=== PATIENT | female | born 1945 | race Caucasian/White ===

== ENCOUNTER 2016-05-09 12:46 | Emergency (ER) | payer MEDICARE ==
[2016-05-09] MEDS ORDERED: Mag-Al Plus 1200 MG/1200 MG/120 MG/30 ML UDCUP ONE (13:44)
[2016-05-09] MEDS ORDERED: Lidocaine Viscous Sol 2% 15 ml UD Cup ONE (13:44)
[2016-05-09] MEDS ORDERED: Pantoprazole 40 MG VIAL ONE (13:44)
--- NOTE | 2016-05-09 13:46 | RAD ---
EXAM: ONE VIEW CHEST: COMPARISON: 07/04/13. HISTORY: Epigastric abdominal pain. FINDINGS: Normal cardiac silhouette. The pulmonary vessels and hilum are normal. Costophrenic angles are slade ar. No masses or consolidation. Tenting of the left hemidiaphragm likely due to scar or atelectasi s. No pneumothorax. Cervical fusion hardware is noted. IMPRESSION: Scarring of the left lung base. POS: [facility]
[2016-05-09 14:03] LABS: #Basophils 0.1 thou/uL (0.0-0.2); #Eosinphils 0.2 thou/uL (0.0-0.7); #Lymphocytes 3.3 thou/uL (1.20-3.40); #Monocytes 0.6 thou/uL (0.11-0.59); #Neutrophils 3.6 thou/uL (1.40-6.50); %Basophils 1.8 % (0.0-1.0); %Eosinophils 2.9 % (0.0-10.0); %Lymphocytes 41.8 % (21.0-51.0); Hematocrit 42.5 % (36.0-47.0); Mean Platelet Volume 8.2 fL (7.4-10.4); Red Blood Cell (RBC) Count 4.59 mill/uL (4.20-5.40)
[2016-05-09 14:10] LABS: Troponin I 0.011 ng/mL (< 0.028)
[2016-05-09 14:17] LABS: ALT (SGPT) 13 U/L (0-55); AST (SGOT) 18 U/L (5-34); Alkaline Phosphatase 95 U/L (40-150); Amylase 79 U/L (25-125); Anion Gap 16 mmol/L (10-20); BUN (Urea Nitrogen) 14 mg/dL (9.8-20.1); Bilirubin, Total 0.5 mg/dL (0.2-1.2); CK (CPK) 45 U/L (29-168); Calc. Creatinine Clearance 0 mL/min (70-130); Calcium 9.7 mg/dL (7.8-10.44); Carbon Dioxide 20 mmol/L (23-31); Chloride 107 mmol/L (98-107); Estimated GFR-MDRD 66; Globulin 3.1 g/dL (2.4-3.5); Lipase 16 U/L (8-78); Protein, Total 7.4 g/dL (5.8-8.1)
[2016-05-09] MEDS ORDERED: Sodium Chloride 0.9% 1,000 ML ONE (14:17)
[2016-05-09 14:54] LABS: Bilirubin Negative (Negative); Blood, Urine Negative (Negative); Glucose, Urine (Dipstick) Negative (Negative); Ketone, Urine Trace mg/dL (Negative); Nitrite Negative (Negative); Protein, Urine (Dipstick) Negative (Neg-Trace); Urobilinogen 0.2 mg/dL (0.2-1.0)
--- NOTE | 2016-05-09 15:32 | PICIS ---
[facility] EMERGENCY RECORD TRIAGE (SunMay 09, 2016 12:59 EPIE) TRIAGE NOTES: Pt reports epigastric abdominal pain. States she has had it for one month. Reports being diagnosed with Ulcer. States that she has also been having fainting spells that go along with it. (SunMay 09, 2016 12:59 EPIE) PATIENT: NAME: Melita Eden, AGE: 70, GENDER: female, : Sun1945, TIME OF GREET: SunMay 09, 2016 12:47, PREFERRED LANGUAGE: Kiswahili, ETHNICITY: Not or , ECODE BILLING MAP: [facility], SSN: [id number], Zip Code: [address], KG WEIGHT: 52.16, PHONE: , , , PERSON ID: [id number], PCP: Nathalia MEDRANO LUKE. (SunMay 09, 2016 12:59 EPIE) COMPLAINT: Near Syncope/Abdominal Pain. (SunMay 09, 2016 12:59 EPIE) ADMISSION: URGENCY: 2 Emergent, ADMISSION SOURCE: Home, TRANSPORT: CAR, BED: TRIAGE. (SunMay 09, 2016 12:59 EPIE) TRIAGE SCREENING: Patient denies suicidal ideation, Patient denies presence of domestic violence. (13:01 EPIE) TREATMENTS IN PROGRESS: Treatments given Prehospital: none. (13:01 EPIE) PROVIDERS: TRIAGE NURSE: Cathi Hoskins RN. (SunMay 09, 2016 12:59 EPIE) VITAL SIGNS: BP 141/66, Pulse 82, Resp 18, (Non-Labored), Temp 98.3, (Oral), Pain 8, O2 Sat 100, on Room Air, Time 05/09/2016 12:56. (12:56 EPIE) PREVIOUS VISIT ALLERGIES: ibuprofen, Tylenol. (SunMay 09, 2016 12:59 EPIE) ibuprofen, Tylenol. (13:01 EPIE) KNOWN ALLERGIES Butrans ibuprofen NSAIDS (Non-Steroidal Anti-Inflamma topiramate: Reaction: MOOD SWINGS Tylenol CURRENT MEDICATIONS [place]: TABLET : Strength - 10 mg-325 mg : ORAL Patient Dose: As Needed. (13:02 EPIE) gabapentin: CAPSULE : Strength - 100 mg : ORAL Patient Dose: unk. (13:02 EPIE) metFORMIN: TABLET : Strength - 500 mg : ORAL Patient Dose: 500 mg Oral 2 times a day. (13:02 EPIE) Crestor: TABLET : Strength - 10 mg : ORAL Patient Dose: unk. (13:02 EPIE) Wellbutrin: &a-1R&a+25V*p+0X*f7064N*c202B*c15G*c2P*p-0X&a-25V&a+1R Name: Melita Eden : 1945 F70 MedRec: [id number] AcctNum: [id number] Prepared: SunMay 09, 2016 15:27 by Interface Page 1 of 12 pMD [facility] EMERGENCY RECORD TABLET : Strength - 75 mg : ORAL Patient Dose: unk. (13:02 EPIE) Cymbalta: CAPSULE,DELAYED RELEASE (ENTERIC COATED) : Strength - 20 mg : ORAL Patient Dose: unk. (13:02 EPIE) traZODone: TABLET : Strength - 100 mg : ORAL Patient Dose: unk.at night as needed. (13:02 EPIE) hyoscyamine: TABLET : Strength - 0.15 mg : ORAL Patient Dose: 0.375 2 times a day. (13:04 EPIE) Victoza 2-Geoff: PEN INJECTOR (ML) : Strength - 0.6 mg/0.1 mL (18 mg/3 mL) : [3 mL(s)] : SUBCUTANEOUS Patient Dose: 1.2 mg once a day. (13:15 EPIE) VITAL SIGNS VITAL SIGNS: BP: 141/66, Pulse: 82, Resp: 18 (Non-Labored), Temp: 98.3 (Oral), Pain: 8, O2 sat: 100 on Room Air, Time: 05/09/2016 12:56. (12:56 EPIE) BP: 127/65, Pulse: 88, Resp: 18 (Non-Labored), O2 sat: 100 on Room Air, Time: 05/09/2016 14:00. (14:00 EPIE) BP: 131/68, Pulse: 84, Resp: 18 (Non-Labored), O2 sat: 100 on Room Air, Time: 05/09/2016 13:30. (13:30 EPIE) BP: 138/54, Pulse: 83, Resp: 18 (Non-Labored), Pain: 6, O2 sat: 100 on Room Air, Time: 05/09/2016 14:20. (14:20 EPIE) BP: 116/72, Pulse: 83, Resp: 20 (Non-Labored), Pain: 6, O2 sat: 97 on Room Air, Time: 05/09/2016 14:30. (14:30 EPIE) BP: 129/67, Pulse: 85, Resp: 20 (Non-Labored), Temp: 98.1 (Oral), Pain: 5, O2 sat: 98 on Room Air, Time: 05/09/2016 15:00. (15:00 EPIE) NURSING ASSESSMENT: ABDOMEN (13:05 EPIE) CONSTITUTIONAL: Patient arrives, via hospital wheelchair, Unsteady gait, Assistance to cart, History obtained from patient, Patient appears comfortable, Patient cooperative, Patient alert, Oriented to person, place and time, Skin warm, Skin dry, Skin normal in color, Mucous membranes pink, Mucous membranes moist, Patient is well-groomed, Pt reports epigastric abdominal pain. States she has had it for one month. Reports being diagnosed with Ulcer. States that she has also been having fainting spells that go along with it. PAIN: aching pain, to the epigastric region, Onset of pain 04/08/2016, on a scale 0-10 patient rates pain as 8. ABDOMEN: Abdomen assessment findings include abdomen symmetrical, Abdomen soft, tender, to the epigastric region, Associated with nausea, Associated with vomiting, no associated diarrhea. LMP: Last menstrual period not applicable due to hysterectomy history. &a-1R&a+25V*p+0X*g6724B*c202B*c15G*c2P*p-0X&a-25V&a+1R Name: Melita Eden : 1945 F70 MedRec: [id number] AcctNum: [id number] Prepared: SunMay 09, 2016 15:27 by Interface Page 2 of 12 pMD [facility] EMERGENCY RECORD GENITOURINARY FEMALE: no associated urinary complaints. NURSING ASSESSMENT: CARDIOVASCULAR (13:12 EPIE) CARDIOVASCULAR: Cardiovascular assessment findings include heart rate normal, Heart sounds normal, Associated with, near syncopal event, Associated with weakness. RESPIRATORY/CHEST: Breath sounds clear, Respiratory assessment findings include respiratory effort easy, Respirations regular, Conversing normally, Neck and chest exam findings include trachea midline, Chest expansion equal, Chest movement symmetrical, no signs of distress, no associated cough noted, no associated fever. NURSING PROCEDURE: BEDSIDE RADIOLOGY BEDSIDE RADIOLOGY: Portable chest x-ray performed. (13:31 EPIE) Bedside radiology performed by NH, Portable chest x-ray performed. (13:31 CCRI) NURSING PROCEDURE: STEAK TENDERIZER MACHINE (13:06 EPIE) PATIENT IDENTIFIER: Patient actively involved in identification process, Patient's identity verified by patient stating name, Patient's identity verified by hospital ID bracelet. STEAK TENDERIZER MACHINE: Patient placed on rn cardiac rehab, Patient placed on non-invasive blood pressure monitor, with disposable blood pressure cuff applied, Patient placed on continuous pulse oximetry, Adult/pediatric oxisensor applied. FOLLOW-UP: After procedure, alarms set and on, After procedure, patient tolerating monitoring. NURSING PROCEDURE: DISCHARGE NOTE (15:12 EPIE) DISCHARGE: Patient discharged to home, in a wheelchair, friend driving, accompanied by friend, Summary of Care printed/ provided, Discharge instructions given to patient, Simple or moderate discharge teaching performed, Prescriptions given and instructions on side effects given, Name of prescription(s) given: omeprazole, Above person(s) verbalized understanding of discharge instructions and follow-up care. BELONGINGS: Belongings and valuables with patient upon arrival to the Emergency Department include:, Belongings and valuables with patient at time of discharge include:, Belongings remain with patient, Valuables remain with patient. NURSING PROCEDURE: EKG CHART (12:59 JPAR) PATIENT IDENTIFIER: Patient actively involved in identification process, Patient's identity verified by patient stating name, Patient's identity verified by patient stating date, Patient's identity verified by hospital ID bracelet, Patient's identity verified by family member. EKG: EKG indicated for Epigastric Pain and Vomiting, 12 lead EKG performed on the left chest, done by Bridger WEI, first EKG. FOLLOW-UP: After procedure, EKG for interpretation given to &a-1R&a+25V*p+0X*y3173N*c202B*c15G*c2P*p-0X&a-25V&a+1R Name: Melita Eden : 1945 F70 MedRec: [id number] AcctNum: [id number] Prepared: SunMay 09, 2016 15:27 by Interface Page 3 of 12 pMD [facility] EMERGENCY RECORD [facility]. SAFETY: Side rails up, Cart/Stretcher in lowest position, Family at bedside, Call light within reach, Hospital ID band on. NURSING PROCEDURE: IV PATIENT IDENITIFIER: Patient actively involved in identification process, Patient's identity verified by patient stating name, Patient's identity verified by hospital ID bracelet. (13:42 EPIE) IV SITE 1: IV established, to the right antecubital, using a 20 gauge catheter, in one attempt, IV site prepped with chloroprep, Saline lock established, Flushed with normal saline (mls): 10, Labs drawn at time of placement, labeled in the presence of the patient and sent to lab. (13:42 EPIE) FOLLOW-UP SITE 1: After procedure, no drainage at IV site, After procedure, no swelling at IV site, After procedure, no redness at IV site. (13:42 EPIE) NOTES: Notes: IV DC with catheter intact. Pressure and dressing applied. (15:10 EPIE) NURSING PROCEDURE: NURSE NOTES NURSES NOTES: Notes: Patient resting with friend at bedside. RR even and unlabored. No new complaints at this time. Warm blanket given for comfort. Awaiting lab results. (13:54 EPIE) Notes: Patient resting with friend at bedside. RR even and unlabored. No new complaints at this time. Pt reports that decreased in pain to a 6/10. IV fluids infusing at this time. (14:22 EPIE) NURSING PROCEDURE: ORTHOSTATIC VITAL SIGNS ORTHOSTATIC VITAL SIGNS: Lying:, Blood pressure: 127/65, Pulse: 85, Sitting:, Blood pressure: 119/65, Pulse: 92, Dizziness with position change, Standing:, Blood pressure: 86/59, Pulse: 105, Dizziness with position change. (14:15 EPIE) Lying:, Blood pressure: 129/67, Pulse: 85, Sitting:, Blood pressure: 123/57, Pulse: 91, Dizziness with position change, Standing:, Blood pressure: 105/65, Pulse: 96, Dizziness with position change, Notes: Pt reports less dizziness than the first orthostatic check. (15:02 EPIE) FOLLOW-UP: After procedure, results given to Dr. Yong SALINAS, Notes: Pt educated about orthostatic hypotension and safety measures associated with it. (14:15 EPIE) After procedure, results given to Dr. Yong SALINAS. (15:02 EPIE) NURSING PROCEDURE: URINE COLLECTION (13:32 EPIE) PATIENT IDENTIFIER: Patient actively involved in identification process, Patient's identity verified by patient stating name, Patient's identity verified by hospital ID bracelet. URINE COLLECTION FEMALE: Urine collected by mid-stream clean catch, Output amount (mL) 60, urine yellow in color, and cloudy, Specimen labeled in the presence of the patient and sent to lab. &a-1R&a+25V*p+0X*p6777C*c202B*c15G*c2P*p-0X&a-25V&a+1R Name: Melita Eden : 1945 F70 MedRec: [id number] AcctNum: [id number] Prepared: SunMay 09, 2016 15:27 by Interface Page 4 of 12 [facility] EMERGENCY RECORD ORDER DETAILS Order Name: Amylase, Status: Active, Time: 13:16 05/09/2016, User: GRISEL, - Ordered for: MD Beach Joshua, - Entered by: MD Beach Joshua - Isa May 09, 2016 13:16, - Quantity: 1, Order Name: STEAK TENDERIZER MACHINE ED, Status: Done, Time: 13:16 05/09/2016, User: SARANYA, - Ordered for: MD Beach Joshua, - Entered by: MD Beach Joshua - Isa May 09, 2016 13:16, - Quantity: 1, Order Name: Cardiac Profile w/CKMB & Troponin - I, Status: Active, Time: 13:16 05/09/2016, User: GRISEL, - Ordered for: MD Beach Joshua, - Entered by: MD Beach Joshua - Tue May 09, 2016 13:16, - Quantity: 1, Order Name: CBC with Differential, Status: Active, Time: 13:16 05/09/2016, User: GRISEL, - Ordered for: MD Beach Joshua, - Entered by: MD Beach Joshua - Tue May 09, 2016 13:16, - Quantity: 1, Order Name: CK (CPK), Status: Active, Time: 13:16 05/09/2016, User: GRISEL, - Ordered for: MD Beach Joshua, - Entered by: MD Beach Joshua - Tue May 09, 2016 13:16, - Quantity: 1, Order Name: Comprehensive Metabolic Panel, Status: Active, Time: 13:16 05/09/2016, User: GRISEL, - Ordered for: MD Beach Joshua, - Entered by: MD Beach Joshua - Tue May 09, 2016 13:16, - Quantity: 1, Order Name: EKG 12 Lead in Emergency Room, Status: Active, Time: 13:06 05/09/2016, User: SARANYA, - Ordered for: MD Beach Joshua, - Entered by: ELIJAH Hoskins Emily - jr May 09, 2016 13:06, - Quantity: 1, Order Name: Lipase, Status: Active, Time: 13:16 05/09/2016, User: GRISEL, - Ordered for: MD Beach Joshua, - Entered by: MD Beach Joshua - Tue May 09, 2016 13:16, - Quantity: 1, Order Name: ORTHOSTATIC VITAL SIGNS, Status: Done, Time: 14:15 05/09/2016, User: EPIJr, - Ordered for: MD Beach Joshua, - Entered by: MD Beach Joshua - Tue May 09, 2016 14:06, - Quantity: 1, Order Name: SALINE LOCK, Status: Done, Time: 13:42 05/09/2016, User: EPIE, &a-1R&a+25V*p+0X*t9715S*c202B*c15G*c2P*p-0X&a-25V&a+1R Name: Melita Eden : 1945 F70 MedRec: [id number] AcctNum: [id number] Prepared: SunMay 09, 2016 15:27 by Interface Page 5 of 12 [facility] EMERGENCY RECORD - Ordered for: MD Beach Joshua, - Entered by: MD Beach Joshua - Tue May 09, 2016 13:16, - Quantity: 1, Order Name: Urinalysis w/ Rflx Microscopic, Status: Active, Time: 13:16 05/09/2016, User: GRISEL, - Ordered for: MD Beach Joshua, - Entered by: MD Beach Joshua - Tue May 09, 2016 13:16, - Quantity: 1, Order Name: XR Chest 1 View Portable, Status: Active, Time: 13:16 05/09/2016, User: GRISEL, - Ordered for: MD Beach Joshua, - Entered by: MD Beach Joshua - jr May 09, 2016 13:16, - Quantity: 1. MEDICATION ADMINISTRATION SUMMARY Drug Name: *sodium chloride 0.9 % intravenous, Dose Ordered: 1 L, Route: IV Fluid Infusion, Status: Given, Time: 14:21 05/09/2016, Drug Name: Protonix intravenous, Dose Ordered: 40 mg, Route: IV Push, Status: Given, Time: 13:50 05/09/2016, Drug Name: GI COCKTAIL - WHITE, Dose Ordered: 40 mL, Route: Oral, Status: Given, Time: 13:49 05/09/2016, *Additional information available in notes, Detailed record available in Medication Service section. MEDICATION SERVICE GI COCKTAIL - WHITE: Order: GI COCKTAIL - WHITE - Dose: 40 mL : Oral Lidocaine Viscous (lidocaine HCl) [10 mL] MAG-AL (magnesium hydroxide/aluminum hydroxide) [30 mL] Ordered by: Car Beach MD Entered by: Car Beach MD SunMay 09, 2016 13:17 , Acknowledged by: Cathi Hoskins RN SunMay 09, 2016 13:32 Documented as given by: Catih Hoskins RN SunMay 09, 2016 13:49 Patient, Medication, Dose, Route and Time verified prior to administration. Amount given: 40ml, Site: Medication administered P.O., Correct patient, time, route, dose and medication confirmed prior to administration, Patient advised of actions and side-effects prior to administration, Allergies confirmed and medications reviewed prior to administration. Protonix intravenous: Order: Protonix intravenous (pantoprazole sodium) - Dose: 40 mg : IV Push Ordered by: Car Beach MD Entered by: Car Beach MD SunMay 09, 2016 13:17 , Acknowledged by: Cathi Hoskins RN SunMay 09, 2016 13:32 Documented as given by: Cathi Hoskins RN SunMay 09, 2016 13:50 Patient, Medication, Dose, Route and Time verified prior to administration. Amount given: 40mg, IV SITE #1 IVP, initial medication, Slowly, &a-1R&a+25V*p+0X*q4932S*c202B*c15G*c2P*p-0X&a-25V&a+1R Name: Melita Eden : 1945 F70 MedRec: [id number] AcctNum: [id number] Prepared: SunMay 09, 2016 15:27 by Interface Page 6 of 12 pMD [facility] EMERGENCY RECORD Catheter placement confirmed via flush prior to administration, IV site without signs or symptoms of infiltration during medication administration, No swelling during administration, No drainage during administration, IV flushed after administration, Correct patient, time, route, dose and medication confirmed prior to administration, Patient advised of actions and side-effects prior to administration, Allergies confirmed and medications reviewed prior to administration. sodium chloride 0.9 % intravenous: Order: sodium chloride 0.9 % intravenous (0.9 % sodium chloride) - Dose: 1 L : IV Fluid Infusion Notes: (Bolus) Ordered by: Car Beach MD Entered by: Car Beach MD SunMay 09, 2016 14:15 , Acknowledged by: Cathi Hoskins RN SunMay 09, 2016 14:17 Documented as given by: Cathi Hoskins RN SunMay 09, 2016 14:21 Patient, Medication, Dose, Route and Time verified prior to administration. Amount given: 1L, IV SITE #1 IV fluids established for hydration, IV SITE #1 into right antecubital, IV SITE #1 1st bag hung, amount 1 Liter hung, IV SITE #1 bolus of 1000 ml established, via primary tubing, Catheter placement confirmed via flush prior to administration, IV site without signs or symptoms of infiltration during medication administration, No swelling during administration, No drainage during administration, IV flushed after administration, Correct patient, time, route, dose and medication confirmed prior to administration, Patient advised of actions and side-effects prior to administration, Allergies confirmed and medications reviewed prior to administration. : Follow Up : Response assessment performed, No signs or symptoms of allergic reaction noted, _IV SITE #1:_, IV fluid infusion discontinued, on SunMay 09, 2016 14:56, 35 minutes, ., Total amount infused: 1L, IV Line flushed after administration. (14:56 EPIE) HPI ABDOMINAL PAIN (13:22 JLOY) CHIEF COMPLAINTS: Patient presents for evaluation of abdominal pain, Patient presents for evaluation of Pt reports epigastric abd pain constant x1 month. Similar to previous ulcer sha had 10 years ago. Pain with eating spicy foods or drinking carbinated drinks. Associated with poor appetite and vomiting every othe day. Pt also with dizziness over the same time frame. Reports 'feels like im going to pass out' with standing. She did pass out once a couple weeks ago. No injury. Near syncope a couple days ago but someone helped her and she didn't fall. Pt saw PCP a couple weeks ago and was prescribed hyoscyamine. She also has tried taking a single pepcid at night. HISTORIAN: History provided by patient. LOCATION FEMALE: Symptoms are localized, most severe in the epigastrium. QUALITY: Pain is dull in nature. TIME COURSE: Patient unable to describe onset of symptoms, &a-1R&a+25V*p+0X*x7954X*c202B*c15G*c2P*p-0X&a-25V&a+1R Name: Melita Eden : 1945 F70 MedRec: [id number] AcctNum: [id number] Prepared: SunMay 09, 2016 15:27 by Interface Page 7 of 12 pMD [facility] EMERGENCY RECORD Symptoms are constant, There has been no change in the patient's symptoms over time. ASSOCIATED WITH FEMALE: No associated bright red blood per rectum, No associated chills, No associated constipation, No associated diarrhea, No associated fever, No associated flank pain, No associated hematemesis, No associated hematuria, Associated with loss of appetite, Associated with nausea, No associated inability to tolerate oral intake, No associated urinary tract infection signs or symptoms, Associated with vomiting. RELIEVED BY: Patient's condition relieved by nothing. EXACERBATED BY: Patient's condition exacerbated by food. ROS (13:25 JLOY) CONSTITUTIONAL: Historian denies chills, denies fever. ENT: Historian denies rhinorrhea, denies sore throat. CARDIOVASCULAR: pt with 5 min episodes of substernal chest pain every few days that resolve by themselves. RESPIRATORY: Historian denies cough, denies shortness of breath, denies sputum. GI: Historian reports abdominal pain, reports anorexia, denies constipation, denies diarrhea, denies hematemesis, denies hematochezia, denies melena, reports nausea, reports vomiting. GENITOURINARY FEMALE: Historian denies dysuria, denies frequency, denies hematuria. MUSCULOSKELETAL: Historian denies arthralgias, denies myalgias. Chronic back pain unchanged. SKIN: Historian denies rash, denies skin changes. NEUROLOGIC: Historian reports dizziness, denies headache, denies paralysis, denies paresthesias, denies sensory changes. Pt reports recurrent severe GOMEZ for many weeks for which she is seeing Dr. Quiñones. PAST MEDICAL HISTORY MEDICAL HISTORY: Past medical history includes history of diabetes, Type II, Past medical history includes neurological disease, peripheral neuropathy. Stomach Ulcers, Chronic Back Pain. (13:01 EPIE) FEMALE SURGICAL HISTORY: back surgery, cataract sx both eyes, Surgical history of appendectomy, Surgical history of cholecystectomy, Surgical history of hysterectomy, Surgical history of tonsillectomy. (13:01 EPIE) PSYCHIATRIC HISTORY: Psychiatric history includes, anxiety, depression. (13:01 EPIE) SOCIAL HISTORY: Patient denies alcohol use, Patient denies drug use, Patient has no smoking history. (13:01 EPIE) NOTES: Nursing records reviewed, Agree with nursing records. (13:28 JLOY) &a-1R&a+25V*p+0X*j2045C*c202B*c15G*c2P*p-0X&a-25V&a+1R Name: Melita Eden : 1945 F70 MedRec: [id number] AcctNum: [id number] Prepared: SunMay 09, 2016 15:27 by Interface Page 8 of 12 pMD [facility] EMERGENCY RECORD PHYSICAL EXAM (13:27 JL) CONSTITUTIONAL: Vital Signs Reviewed, Patient appears non toxic, Patient alert and oriented to person, place and time. EYES: Eye exam included findings of eyelids normal to inspection, Pupils equally round and reactive to light, Conjunctiva normal. ENT: Pharynx exam normal, Uvula exam normal, Tonsil exam normal, Mouth exam normal, mucous membranes moist. NECK: Neck exam included findings of normal range of motion, Trachea midline, no cervical adenopathy. RESPIRATORY CHEST: Respiratory exam included findings of no respiratory distress, Breath sounds clear, No wheezing, No rales, No rhonchi, Chest exam included findings of chest movement symmetrical. CARDIOVASCULAR: Cardiovascular exam included findings of heart rate regular rate and rhythm, Heart sounds normal. ABDOMEN FEMALE: Abdominal exam included findings of abdomen tender, to the epigastric region, moderate intensity, mild tenderness throughout, Liver normal, Spleen normal, no distension, no peritoneal signs, no rigidity, no guarding, no rebound. BACK: Back exam included findings of normal inspection. UPPER EXTREMITY: Upper extremity exam included findings of inspection normal, Radial pulse normal, no cyanosis, no clubbing, no edema. LOWER EXTREMITY: Lower extremity exam included findings of inspection normal, no edema, no calf tenderness. NEURO: [place] coma scale 15, Neuro exam findings include patient oriented to person, place and time, Speech normal. SKIN: Skin exam included findings of skin warm, dry, and normal in color, no rash. PSYCHIATRIC: Normal affect. EVENTS TRANSFER: Triage to Emergency Triage. (SunMay 09, 2016 12:59 EPIE) Emergency Triage to Emergency Room -04. (13:00 EPIE) Removed from Emergency Emergency Room -04. (15:23 EPIE) DOCTOR NOTES (14:51 JLOY) RE-EVALUATION: The patient's condition has improved, Pain nearly resolved. PROBLEM LIST No recorded problems DIAGNOSIS (15:03 JLOY) FINAL: PRIMARY: Abdominal Pain, ADDITIONAL: ORTHOSTATIC HYPOTENSION. DISPOSITION PATIENT: Disposition Type: Discharge, Disposition: *Discharge &a-1R&a+25V*p+0X*t5375C*c202B*c15G*c2P*p-0X&a-25V&a+1R Name: Melita Eden : 1945 F70 MedRec: [id number] AcctNum: [id number] Prepared: SunMay 09, 2016 15:27 by Interface Page 9 of 12 pMD [facility] EMERGENCY RECORD Home. (15:03 JLOY) Patient left the department. (15:23 EPIE) INSTRUCTION (15:04 JLOY) DISCHARGE: GASTRITIS VS. ULCER, DEHYDRATION (7Y-ADULT). FOLLOWUP: Nathalia MEDRANO, DAVID, Internal Medicine, [facility] [id number], , Follow up with Primary Care Physician in 7-10 days. PRESCRIPTION (15:03 JLOY) omeprazole: CAPSULE,DELAYED RELEASE (ENTERIC COATED) : 40 mg : ORAL : Quantity: 40 Unit: mg Route: ORAL Schedule: once a day Dispense: 14 days May substitute. Refills: No Refills . NOTES: No Refills. IMAGING *EKG: Image captured from scanner. (14:09 EPIE) *DISCHARGE INSTRUCTIONS RECEIPT: Image captured from scanner. (15:22 EPIE) *SUPPLY CHARGE SHEET: Image captured from scanner. (15:23 EPIE) RESULTS (15:10 JPAR) RADIOLOGY: XR Chest 1 View Portable Observe DT: SunMay 09, 2016 13:19, CXRP EXAM: ONE VIEW CHEST: COMPARISON: 07/04/13. HISTORY: Epigastric abdominal pain. FINDINGS: Normal cardiac silhouette. The pulmonary vessels and hilum are normal. Costophrenic angles are slade ar. No masses or consolidation. Tenting of the left hemidiaphragm likely due to scar or atelectasi s. No pneumothorax. Cervical fusion hardware is noted. IMPRESSION: Scarring of the left lung base. POS: [facility] . LABORATORY: Urinalysis w/ Rflx Microscopic Collection DT: SunMay 09, 2016 13:38, Color Yellow , Range (Yellow), &a-1R&a+25V*p+0X*f0184C*c202B*c15G*c2P*p-0X&a-25V&a+1R Name: Melita Eden : 1945 F70 MedRec: [id number] AcctNum: [id number] Prepared: SunMay 09, 2016 15:27 by Interface Page 10 of 12 pMD [facility] EMERGENCY RECORD Clarity Clear , Range (Clear), Specific [place], Urine 1.020 , Range (1.005-1.030), pH, Urine 7.5 , Range (5.0-9.0), Leukocyte Negative , Range (Negative), Nitrite Negative , Range (Negative), Protein, Urine (Dipstick) Negative mg/dL, Range (Neg-Trace), Glucose, Urine (Dipstick) Negative mg/dL, Range (Negative), *Ketone, Urine Trace - H mg/dL, Range (Negative), Urobilinogen 0.2 mg/dL, Range (0.2-1.0), Bilirubin Negative , Range (Negative), Blood, Urine Negative , Range (Negative). Lipase Collection DT: SunMay 09, 2016 13:43, Lipase 16 U/L, Range (8-78). Amylase Collection DT: SunMay 09, 2016 13:43, Amylase 79 U/L, Range (25-125). CK (CPK) Collection DT: SunMay 09, 2016 13:43, CK (CPK) 45 U/L, Range (29-168). Comprehensive Metabolic Panel Collection DT: SunMay 09, 2016 13:43, Sodium 139 mmol/L, Range (136-145), Potassium 4.2 mmol/L, Range (3.5-5.1), Chloride 107 mmol/L, Range (98-107), *Carbon Dioxide 20 - L mmol/L, Range (23-31), Anion Gap 16 mmol/L, Range (10-20), BUN (Urea Nitrogen) 14 mg/dL, Range (9.8-20.1), Creatinine 0.85 mg/dL, Range (0.6-1.1), Estimated GFR-MDRD 66 , Reference Range for Estimated GFR: Greater than 90, mL/min/1.73 m2 NOTE: The MDRD equation has not been validated for use, with the elderly (over 70 years of age), women, patients with, serious comorbid condition or persons with extremes of body size, muscle, mass, or nutritional status. , Glucose 107 mg/dL, Range (80-115), Calcium 9.7 mg/dL, Range (7.8-10.44), Bilirubin, Total 0.5 mg/dL, Range (0.2-1.2), Protein, Total 7.4 g/dL, Range (5.8-8.1), NOTE: Plasma values are generally 0.3 to 0.5 g/dL higher than serum values, due to the presence of fibrinogen. , Albumin 4.3 g/dL, Range (3.4-4.8), Globulin 3.1 g/dL, Range (2.4-3.5), Alb/Glob Ratio 1.4 g/dL, Range (1.2-2.2), Alkaline Phosphatase 95 U/L, Range (40-150), AST (SGOT) 18 U/L, Range (5-34), ALT (SGPT) 13 U/L, Range (0-55). Cardiac Profile w/CKMB & TropI Collection DT: SunMay 09, 2016 13:43, CKMB 1.0 ng/mL, Range (0-6.6), Troponin I 0.011 ng/mL, Range (< 0.028), Reference Range &a-1R&a+25V*p+0X*[id number]*c202B*c15G*c2P*p-0X&a-25V&a+1R Name: Melita Eden : 1945 F70 MedRec: [id number] AcctNum: [id number] Prepared: SunMay 09, 2016 15:27 by Interface Page 11 of 12 pMD [facility] EMERGENCY RECORD , 0.00 - 0.028 ng/mL Negative 0.029 - 0.29 ng/mL , Indeterminate Greater or Equal to 0.3 ng/mL Strongly suggests NE , . CBC with Differential Collection DT: SunMay 09, 2016 13:43, White Blood Cell (WBC) Count 8.0 thou/uL, Range (4.8-10.8), Red Blood Cell (RBC) Count 4.59 mill/uL, Range (4.20-5.40), Hemoglobin 13.8 g/dL, Range (12.0-16.0), Hematocrit 42.5 %, Range (36.0-47.0), Mean Corpuscular Volume 92.7 fl, Range (81.0-99.0), Mean Corpuscular Hemoglobin 30.1 pg, Range (27.0-31.0), Mean Corpuscular HGB CONC 32.5 g/dL, Range (32.0-36.0), RBC Distribution Width 11.7 %, Range (11.5-14.5), Platelet Count 308 thou/uL, Range (130-400), Mean Platelet Volume 8.2 fL, Range (7.4-10.4), %Neutrophils 45.4 %, Range (42.0-75.0), %Lymphocytes 41.8 %, Range (21.0-51.0), %Monocytes 8.0 %, Range (0.0-10.0), %Eosinophils 2.9 %, Range (0.0-10.0), *%Basophils 1.8 - H %, Range (0.0-1.0), #Neutrophils 3.6 thou/uL, Range (1.40-6.50), #Lymphocytes 3.3 thou/uL, Range (1.20-3.40), *#Monocytes 0.6 - H thou/uL, Range (0.11-0.59), #Eosinphils 0.2 thou/uL, Range (0.0-0.7), #Basophils 0.1 thou/uL, Range (0.0-0.2). Ackerman: ROBBYI=JULIANA Agrawal, Guero BEAVER=ELIJAH Hoskins, Cathi RECINOS=MD Yong, Car BABB=ELIJAH Velasquez, Bridger &a-1R&a+25V*p+0X*[id number]*c202B*c15G*c2P*p-0X&a-25V&a+1R Name: Melita Eden : 1945 F70 MedRec: [id number] AcctNum: [id number] Prepared: SunMay 09, 2016 15:27 by Interface Page 12 of 12 pMD [facility] MEDICATION RECONCILIATION You were seen in the Emergency Department on: SunMay 09, 2016 KNOWN ALLERGIES Butrans ibuprofen NSAIDS (Non-Steroidal Anti-Inflamma topiramate: Reaction: MOOD SWINGS Tylenol MEDICATIONS GIVEN WHILE IN THE EMERGENCY DEPARTMENT Protonix intravenous (pantoprazole sodium) - Dose: 40 milligram(s) : IV Push GI COCKTAIL - WHITE - Dose: 40 milliliter(s) : Oral sodium chloride 0.9 % intravenous (0.9 % sodium chloride) - Dose: 1 liter(s) : IV Fluid Infusion HOME MEDICATIONS CONTINUE PRESCRIBED Crestor : TABLET : Strength - 10 mg : ORAL Continue as prescribed Patient had been taking: unk. Cymbalta : CAPSULE,DELAYED RELEASE (ENTERIC COATED) : Strength - 20 mg : ORAL Continue as prescribed Patient had been taking: unk. gabapentin : CAPSULE : Strength - 100 mg : ORAL Continue as prescribed Patient had been taking: unk. hyoscyamine : TABLET : Strength - 0.15 mg : ORAL Continue as prescribed Patient had been takin.375 2 times a day. metFORMIN : TABLET : Strength - 500 mg : ORAL Continue as prescribed Patient had been takin mg Oral 2 times a day. Surprise : TABLET : Strength - 10 mg-325 mg : ORAL Continue as prescribed Patient had been taking: As Needed. &a-1R&a+25V*p+0X*q5249M*c202B*c15G*c2P*p-0X&a-25V&a+1R Name: Melita Eden : 1945 F70 MedRec: [id number] AcctNum: [id number] Prepared: SunMay 09, 2016 15:27 by Interface pMD [facility] MEDICATION RECONCILIATION traZODone : TABLET : Strength - 100 mg : ORAL Continue as prescribed Patient had been taking: unk. Comment: at night as needed. Victoza 2-Geoff : PEN INJECTOR (ML) : Strength - 0.6 mg/0.1 mL (18 mg/3 mL) : [3 mL(s)] : SUBCUTANEOUS Continue as prescribed Patient had been takin.2 mg once a day. Wellbutrin : TABLET : Strength - 75 mg : ORAL Continue as prescribed Patient had been taking: unk. PRESCRIPTIONS (1) &a-1R&a+25V*p+0X*[id number]*c202B*c15G*c2P*p-0X&a-25V&a+1R Name: Melita Eden : 1945 F70 MedRec: [id number] AcctNum: [id number] Prepared: Isa May 09, 2016 15:27 by Interface pMD [id number]
== END 2016-05-09 15:12 | disposition home or self-care (01) ==
LOC: NAV ERS 12:46
DX: R10.13 Epigastric pain (principal); I95.1 Orthostatic hypotension; E11.9 Type 2 diabetes mellitus without complications; F41.9 Anxiety disorder, unspecified; F32.9 Major depressive disorder, single episode, unspecified; Z79.84 Long term (current) use of oral hypoglycemic drugs; Z79.899 Other long term (current) drug therapy
CPT/HCPCS: 71010; 80053; 81003; 82150; 82553; 83690; 84484; 85025; 93005; 96361; 96374; C9113; J7050